=== PATIENT | female | born 1945 | race African-American/Black ===

== ENCOUNTER 2016-10-15 04:47 | Emergency (ER) | payer MEDICARE, BC, OTHER ==
[2016-10-15] MEDS ORDERED: Ondansetron HCl/PF 4 MG/2 ML Vial ONE (05:24)
[2016-10-15 05:36] LABS: #Basophils 0.1 thou/uL (0.0-0.2); #Eosinphils 0.2 thou/uL (0.0-0.7); #Lymphocytes 1.1 thou/uL (1.20-3.40); #Monocytes 0.5 thou/uL (0.11-0.59); #Neutrophils 4.4 thou/uL (1.40-6.50); %Basophils 1.6 % (0.0-1.0); %Eosinophils 2.5 % (0.0-10.0); %Lymphocytes 17.8 % (21.0-51.0); Hemoglobin 10.9 g/dL (12.0-16.0); Mean Corpuscular HGB CONC 34.1 g/dL (32.0-36.0); Mean Corpuscular Hemoglobin 30.7 pg (27.0-31.0); Mean Platelet Volume 6.2 fL (7.4-10.4); Platelet Count 262 thou/uL (130-400); RBC Distribution Width 12.5 % (11.5-14.5); Red Blood Cell (RBC) Count 3.55 mill/uL (4.20-5.40); White Blood Cell (WBC) Count 6.2 thou/uL (4.8-10.8)
[2016-10-15 05:46] LABS: ALT (SGPT) 16 U/L (8-55); AST (SGOT) 34 U/L (5-34); Albumin 3.5 g/dL (3.4-4.8); Alkaline Phosphatase 70 U/L (40-150); Anion Gap 16 mmol/L (10-20); BUN (Urea Nitrogen) 18 mg/dL (9.8-20.1); Bilirubin, Total 0.3 mg/dL (0.2-1.2); CK (CPK) 170 U/L (29-168); CKMB 1.5 ng/mL (0-6.6); Calc. Creatinine Clearance 0 mL/min (70-130); Calcium 9.1 mg/dL (7.8-10.44); Carbon Dioxide 26 mmol/L (23-31); Chloride 108 mmol/L (98-107); Estimated GFR-MDRD 30; Globulin 3.4 g/dL (2.4-3.5); Glucose 81 mg/dL (83-110); Lipase 163 U/L (8-78); Potassium 3.7 mmol/L (3.5-5.1); Protein, Total 6.9 g/dL (5.8-8.1); Sodium 146 mmol/L (136-145); Troponin I 0.038 ng/mL (< 0.028)
[2016-10-15 06:34] LABS: Bilirubin Negative (Negative); Blood, Urine Negative (Negative); Clarity Clear (Clear); Glucose, Urine (Dipstick) Negative (Negative); Leukocyte Negative (Negative); Nitrite Negative (Negative); Protein, Urine (Dipstick) 100 mg/dL (Neg-Trace); Urobilinogen 0.2 mg/dL (0.2-1.0); pH, Urine 6.5 (5.0-9.0)
[2016-10-15 06:39] LABS: Bacteria/HPF None Seen HPF (None Seen); RBC/HPF None Seen HPF (0-3); Squamous Epithelial 0-3 HPF (0-3); WBC/HPF 0-3 HPF (0-3)
--- NOTE | 2016-10-15 08:06 | RAD ---
AP VIEW OF CHEST: Date: 10/15/16 INDICATION: Nausea and vomiting. COMPARISON: Prior exam dated 05/06/16. FINDINGS: The lungs are clear. The patient is slightly rotated to the right accentuating the ascending aorta. Pulmonary vasculature are normal. No pleural effusion or pneumothorax evident. IMPRESSION: No acute cardiopulmonary abnormality. POS: [facility]
== END 2016-10-15 07:15 | disposition home or self-care (01) ==
LOC: NAV ERS 04:47
DX: R10.30 Lower abdominal pain, unspecified (principal); I25.2 Old myocardial infarction; E11.9 Type 2 diabetes mellitus without complications; E78.5 Hyperlipidemia, unspecified; E78.00 Pure hypercholesterolemia, unspecified; I48.91 Unspecified atrial fibrillation; F03.90 Unspecified dementia, unspecified severity, without behavioral disturbance, psychotic disturbance, mood disturbance, and anxiety; I12.9 Hypertensive chronic kidney disease with stage 1 through stage 4 chronic kidney disease, or unspecified chronic kidney disease; N18.9 Chronic kidney disease, unspecified; D64.9 Anemia, unspecified; Z79.899 Other long term (current) drug therapy
CPT/HCPCS: 71010; 80053; 81003; 81015; 82553; 83690; 84484; 85025; 93005; 96374; J2405

== ENCOUNTER 2016-12-05 18:05 | Emergency (ER) | payer MEDICARE, BC, OTHER ==
--- NOTE | 2016-12-06 07:36 | RAD ---
THREE VIEWS OF THE RIGHT HAND: DATE: 12/05/16. HISTORY: Right hand pain. FINDINGS: There is scattered osteoarthritis involving the interphalangeal joints and greater involving the 1st carpometacarpal joint. No fracture or dislocation is seen involving the right hand. IMPRESSION: Scattered osteoarthritis about the hand, but no acute osseous abnormality is seen. POS: [facility]
== END 2016-12-05 19:20 | disposition home or self-care (01) ==
LOC: NAV ERS 18:06
DX: S60.221A Contusion of right hand, initial encounter (principal); I10 Essential (primary) hypertension; W22.03XA Walked into furniture, initial encounter

== ENCOUNTER 2016-12-07 13:40 | Outpatient (CLI) | payer MEDICARE, BC, OTHER ==
--- NOTE | 2016-12-07 16:02 | RAD ---
RIGHT HAND THREE VIEWS: History: 71-year-old female with right hand pain and swelling. Comparison: 12-05-16 FINDINGS: No evidence for acute fracture or dislocation. Osteoarthrosis changes are noted of the wrist and parra d. Stable appearance from 12-05-16. IMPRESSION: No acute fracture or dislocation. Degenerative and osteoarthrosis changes. POS: [facility]
== END 2016-12-07 13:41 | disposition home or self-care (01) ==
LOC: NAV RAD 13:40
PROVIDERS: ATTEND Internal Medicine
DX: S60.031A Contusion of right middle finger without damage to nail, initial encounter (principal)

== ENCOUNTER 2016-12-21 07:57 | Observation (INO) | payer MEDICARE, BC, OTHER ==
[2016-12-21] MEDS ORDERED: Morphine Sulfate 2 MG/ML SYRINGE ONE (08:41)
[2016-12-21] MEDS ORDERED: Nitroglycerin 0.4 MG TAB (25 Tab Bottle) ONE (08:42)
[2016-12-21] MEDS ORDERED: Promethazine HCl 25 MG/ML VIAL ONE (08:42)
[2016-12-21] MEDS ORDERED: Sodium Chloride 0.9% 100 ML ONE (08:42)
[2016-12-21 08:53] LABS: ALT (SGPT) 14 U/L (8-55); AST (SGOT) 27 U/L (5-34); Albumin 3.8 g/dL (3.4-4.8); Alkaline Phosphatase 68 U/L (40-150); Anion Gap 18 mmol/L (10-20); BUN (Urea Nitrogen) 20 mg/dL (9.8-20.1); Bilirubin, Total 0.3 mg/dL (0.2-1.2); Calc. Creatinine Clearance 0 mL/min (70-130); Calcium 9.5 mg/dL (7.8-10.44); Carbon Dioxide 23 mmol/L (23-31); Chloride 106 mmol/L (98-107); Estimated GFR-MDRD 24; Globulin 2.8 g/dL (2.4-3.5); Glucose 168 mg/dL (83-110); Lipase 47 U/L (8-78); Potassium 3.4 mmol/L (3.5-5.1); Protein, Total 6.6 g/dL (6.0-8.3); Sodium 144 mmol/L (136-145)
[2016-12-21 08:54] LABS: CKMB 1.6 ng/mL (0-6.6); Troponin I 0.045 ng/mL (< 0.028)
[2016-12-21] MEDS ORDERED: Sodium Chloride 0.9% 1,000 ML ONE (09:03)
[2016-12-21 09:09] LABS: Bilirubin Negative (Negative); Blood, Urine Negative (Negative); Clarity Clear (Clear); Glucose, Urine (Dipstick) Negative (Negative); Leukocyte Negative (Negative); Nitrite Negative (Negative); Protein, Urine (Dipstick) Trace mg/dL (Neg-Trace); Specific Gravity, Urine 1.015 (1.005-1.030); Urobilinogen 0.2 mg/dL (0.2-1.0)
[2016-12-21 09:13] LABS: Prothrombin Time 13.1 SEC (12.0-14.7)
[2016-12-21 09:17] LABS: Eosinophils 1 % (0-10); Hemoglobin 11.2 g/dL (12.0-16.0); Lymphocytes 59 % (21-51); MDiff Complete? YES; Mean Corpuscular HGB CONC 33.3 g/dL (32.0-36.0); Mean Corpuscular Hemoglobin 30.1 pg (27.0-31.0); Mean Corpuscular Volume 90.2 fl (81.0-99.0); Mean Platelet Volume 6.2 fL (7.4-10.4); Monocytes 7 % (0-10); Neutrophil 33 % (42-75); PLT Morphology Comment Appears Adequate; Platelet Count 265 thou/uL (130-400); RBC Distribution Width 11.9 % (11.5-14.5); Red Blood Cell (RBC) Count 3.72 mill/uL (4.20-5.40); White Blood Cell (WBC) Count 6.3 thou/uL (4.8-10.8)
[2016-12-21] MEDS ORDERED: Sodium Chloride 0.9% 250 ML 250 ML ONE (09:32)
--- NOTE | 2016-12-21 09:41 | CT ---
CT BRAIN WITHOUT CONTRAST: History: Diaphoretic. Shaking, headache. Comparison: 09-04-15 FINDINGS: No acute territory infarct or hemorrhage. No midline shift of mass effect. Extensive subcortical catalina roangiopathic changes of bifrontal lobes. No mass effect. Calvarium is intact. Paranasal sinuses are clear. Retention cyst of left maxillary sinus. IMPRESSION: 1. No acute intracranial abnormality. No significant change. 2. Extensive subcortical microangiopathic changes. POS: [facility]
[2016-12-21 09:52] LABS: D-Dimer Test 0.29 *mcg/mL (0.27-0.43)
--- NOTE | 2016-12-21 10:27 | RAD ---
CHEST ONE VIEW HISTORY: Diaphoretic. Shaking. COMPARISON: Chest, one view, 10/15/2016. FINDINGS: The lungs are slightly hypoinflated. No pneumothorax or effusion. The cardiac silhouette is unrema rkable, given technique. Mild degenerative changes of both shoulder joints and acromioclavicular fabby ints. There is some irregularity of the right anterior 8th rib. IMPRESSION: 1. No acute intrathoracic abnormality. 2. Some cortical irregularity of the right anterolateral 8th rib, may be sequela of fracture. Salvatore mmend correlation with focal tenderness. POS: [facility]
[2016-12-21] MEDS ORDERED: Sulfameth/Trimethoprim DS 800-160mg TAB PO SCH (11:00)
[2016-12-21 11:34] VITALS: BMI 21.6
[2016-12-21] MEDS: Sodium Chloride 0.9% 1,000 ML IV SCH ×4 (12:10→20:56)
[2016-12-21 14:50] LABS: Lactic Acid 1.1 mmol/L (0.5-2.2)
[2016-12-21 15:00] LABS: Troponin I 0.051 ng/mL (< 0.028)
[2016-12-21 18:49] LABS: Lactic Acid 1.4 mmol/L (0.5-2.2)
[2016-12-21 18:51] LABS: Anion Gap 13 mmol/L (10-20); BUN (Urea Nitrogen) 16 mg/dL (9.8-20.1); Calc. Creatinine Clearance 28 mL/min (70-130); Calcium 8.5 mg/dL (7.8-10.44); Carbon Dioxide 24 mmol/L (23-31); Chloride 110 mmol/L (98-107); Estimated GFR-MDRD 33; Glucose 101 mg/dL (83-110); Potassium 3.8 mmol/L (3.5-5.1); Sodium 143 mmol/L (136-145)
[2016-12-21] MEDS ORDERED: Donepezil HCl 10 MG TAB PO SCH (21:00)
[2016-12-22] MEDS ORDERED: Haloperidol 1 MG TAB PO SCH (00:15)
[2016-12-22] MEDS: Sodium Chloride 0.9% 1,000 ML IV SCH ×2 (04:20→12:43)
[2016-12-22 05:29] LABS: Anion Gap 12 mmol/L (10-20); BUN (Urea Nitrogen) 16 mg/dL (9.8-20.1); Calc. Creatinine Clearance 26 mL/min (70-130); Calcium 8.4 mg/dL (7.8-10.44); Carbon Dioxide 26 mmol/L (23-31); Chloride 112 mmol/L (98-107); Estimated GFR-MDRD 31; Glucose 90 mg/dL (83-110); Sodium 146 mmol/L (136-145)
[2016-12-22] MEDS ORDERED: Aspirin 81 mg Enteric Coated Tablet PO SCH (09:00)
[2016-12-22] MEDS ORDERED: BUPROPION HCL 100 MG PO SCH (09:00)
[2016-12-22] MEDS ORDERED: Folic Acid 1 MG TAB PO SCH (09:00)
[2016-12-22 14:24] LABS: Anion Gap 14 mmol/L (10-20); BUN (Urea Nitrogen) 16 mg/dL (9.8-20.1); Calc. Creatinine Clearance 28 mL/min (70-130); Calcium 8.4 mg/dL (7.8-10.44); Carbon Dioxide 22 mmol/L (23-31); Chloride 112 mmol/L (98-107); Estimated GFR-MDRD 34; Glucose 132 mg/dL (83-110); Potassium 4.4 mmol/L (3.5-5.1); Sodium 144 mmol/L (136-145)
[2016-12-22 17:10] VITALS: BP 161/77; TEMP 97.2
== END 2016-12-22 17:33 | disposition home or self-care (01) ==
LOC: NAV ERS 07:57 → NAV ACUTE 11:19
PROVIDERS: ADMIT Internal Medicine; ATTEND Internal Medicine
DX: I12.9 Hypertensive chronic kidney disease with stage 1 through stage 4 chronic kidney disease, or unspecified chronic kidney disease (principal); N18.3 Chronic kidney disease, stage 3 (moderate); E86.0 Dehydration; R07.9 Chest pain, unspecified; F03.90 Unspecified dementia, unspecified severity, without behavioral disturbance, psychotic disturbance, mood disturbance, and anxiety; Z79.899 Other long term (current) drug therapy
CPT/HCPCS: 36415; 36416; 70450; 71010; 80048; 80053; 81003; 82553; 83605; 83690; 83880; 84484; 85025; 85379; 85610; 85730; 87040; 87086; 93005; 94760; 96361; 96365; 96367; 96375; A4353; G0378; J2270; J2550; J3370; J7050

== ENCOUNTER 2017-01-11 04:03 | Emergency (ER) | payer MEDICARE, BC, OTHER ==
[2017-01-11] MEDS ORDERED: Ibuprofen 200 MG TAB ONE (04:48)
--- NOTE | 2017-01-11 08:13 | RAD ---
CHEST TWO VIEWS: Comparison: 08-13-14 History: Fall, left sided chest pain. FINDINGS: Normal cardiac silhouette. The pulmonary vessels and hilum are normal. Costophrenic angles are clear . No mass. No consolidation. No pneumothorax or osseous abnormality. IMPRESSION: No acute cardiopulmonary process. POS: [facility]
--- NOTE | 2017-01-11 08:17 | RAD ---
LEFT RIBS TWO VIEWS: History: Injury. Comparison: None. FINDINGS: Two views left ribs. No fracture. No cortical irregularity or periosteal reaction. IMPRESSION: No fracture. POS: [facility]
== END 2017-01-11 05:30 | disposition home or self-care (01) ==
LOC: NAV ERS 04:03
DX: R07.89 Other chest pain (principal); I10 Essential (primary) hypertension; G30.9 Alzheimer's disease, unspecified; F02.80 Dementia in other diseases classified elsewhere, unspecified severity, without behavioral disturbance, psychotic disturbance, mood disturbance, and anxiety; Z79.82 Long term (current) use of aspirin; Z79.899 Other long term (current) drug therapy; W06.XXXA Fall from bed, initial encounter
CPT/HCPCS: 71020

== ENCOUNTER 2017-02-16 11:50 | Emergency (ER) | payer MEDICARE, BC, OTHER ==
[2017-02-16 12:32] LABS: #Basophils 0.1 thou/uL (0.0-0.2); #Lymphocytes 1.4 thou/uL (1.20-3.40); #Monocytes 0.3 thou/uL (0.11-0.59); #Neutrophils 1.5 thou/uL (1.40-6.50); %Basophils 1.6 % (0.0-1.0); %Eosinophils 0.8 % (0.0-10.0); %Lymphocytes 43.4 % (21.0-51.0); %Monocytes 9.1 % (0.0-10.0); %Neutrophils 45.1 % (42.0-75.0); Hemoglobin 10.9 g/dL (12.0-16.0); Mean Corpuscular HGB CONC 32.4 g/dL (32.0-36.0); Mean Corpuscular Hemoglobin 29.8 pg (27.0-31.0); Mean Corpuscular Volume 92.1 fl (81.0-99.0); Mean Platelet Volume 6.6 fL (7.4-10.4); Platelet Count 247 thou/uL (130-400); RBC Distribution Width 11.9 % (11.5-14.5); Red Blood Cell (RBC) Count 3.64 mill/uL (4.20-5.40); White Blood Cell (WBC) Count 3.3 thou/uL (4.8-10.8)
[2017-02-16 12:44] LABS: CKMB 1.5 ng/mL (0-6.6)
[2017-02-16 12:46] LABS: ALT (SGPT) 11 U/L (8-55); AST (SGOT) 17 U/L (5-34); Albumin 3.8 g/dL (3.4-4.8); Alkaline Phosphatase 64 U/L (40-150); Anion Gap 12 mmol/L (10-20); BUN (Urea Nitrogen) 15 mg/dL (9.8-20.1); Bilirubin, Total 0.2 mg/dL (0.2-1.2); Calc. Creatinine Clearance 0 mL/min (70-130); Calcium 9.4 mg/dL (7.8-10.44); Carbon Dioxide 28 mmol/L (23-31); Chloride 107 mmol/L (98-107); Estimated GFR-MDRD 32; Globulin 2.6 g/dL (2.4-3.5); Glucose 128 mg/dL (83-110); Potassium 3.3 mmol/L (3.5-5.1); Protein, Total 6.4 g/dL (6.0-8.3); Sodium 144 mmol/L (136-145)
--- NOTE | 2017-02-16 12:49 | CT ---
CT BRAIN NONCONTRAST: HISTORY: A 72-year-old female with acute syncope, dysarthria and difficulty understanding commands. This stroke alert protocol report was called, by telephone, to Dr. Jesus Patterson, of [facility], at 12:21 p.m. on 02/16/2017. FINDINGS: There is no midline shift or any other mass effect. There is no evidence of acute intracranial hemo rrhage, large cortical infarct, obstructive hydrocephalus, or extraaxial fluid collection. The calv arium is intact. There is diffuse parenchymal volume loss. There are low attenuation areas in the white matter. These are nonspecific, but in a patient of this age, they are probably chronic ischem ic white matter changes due to microvascular atherosclerosis. IMPRESSION: 1) No acute intracranial findings. 2) Involutional changes and chronic ischemic white matter changes. CODE CR jn [] POS: [facility]
[2017-02-16] MEDS ORDERED: Sodium Chloride 0.9% 1,000 ML ONE (12:52)
== END 2017-02-16 14:27 | disposition short-term general hospital (02) ==
LOC: NAV ERS 11:50
DX: R55 Syncope and collapse (principal); I12.0 Hypertensive chronic kidney disease with stage 5 chronic kidney disease or end stage renal disease; N18.9 Chronic kidney disease, unspecified; E87.6 Hypokalemia; G30.9 Alzheimer's disease, unspecified; F02.80 Dementia in other diseases classified elsewhere, unspecified severity, without behavioral disturbance, psychotic disturbance, mood disturbance, and anxiety; Z79.82 Long term (current) use of aspirin; Z79.899 Other long term (current) drug therapy
CPT/HCPCS: 36416; 70450; 80053; 82553; 84484; 85025; 93005; 96360; J7050

== ENCOUNTER 2017-05-09 18:44 | Emergency (ER) | payer MEDICARE, BC, OTHER ==
--- NOTE | 2017-05-09 20:10 | RAD ---
CHEST TWO VIEWS HISTORY: Cough. COMPARISON: Chest two-view 01/11/2017. FINDINGS: Lungs are hypoinflated. No pneumothorax or effusion. No focal airspace consolidation. There is narrowing of subacromial space bilaterally. IMPRESSION: No acute intrathoracic abnormality. POS: [facility]
[2017-05-09 20:17] LABS: ALT (SGPT) 10 U/L (8-55); AST (SGOT) 21 U/L (5-34); Albumin 4.1 g/dL (3.4-4.8); Alkaline Phosphatase 69 U/L (40-150); Anion Gap 16 mmol/L (10-20); BUN (Urea Nitrogen) 24 mg/dL (9.8-20.1); Bilirubin, Total 0.3 mg/dL (0.2-1.2); Calc. Creatinine Clearance 0 mL/min (70-130); Calcium 9.6 mg/dL (7.8-10.44); Carbon Dioxide 25 mmol/L (23-31); Chloride 104 mmol/L (98-107); Estimated GFR-MDRD 23; Globulin 2.9 g/dL (2.4-3.5); Glucose 105 mg/dL (83-110); Sodium 141 mmol/L (136-145)
[2017-05-09 20:18] LABS: CKMB 1.6 ng/mL (0-6.6); Troponin I 0.046 ng/mL (< 0.028)
[2017-05-09 20:33] LABS: #Basophils 0.1 thou/uL (0.0-0.2); #Lymphocytes 1.1 thou/uL (1.20-3.40); #Monocytes 0.4 thou/uL (0.11-0.59); #Neutrophils 4.7 thou/uL (1.40-6.50); %Eosinophils 0.7 % (0.0-10.0); %Lymphocytes 17.4 % (21.0-51.0); %Monocytes 6.8 % (0.0-10.0); Hemoglobin 12.1 g/dL (12.0-16.0); Mean Corpuscular HGB CONC 32.4 g/dL (32.0-36.0); Mean Corpuscular Hemoglobin 31.1 pg (27.0-31.0); Mean Corpuscular Volume 96.1 fl (81.0-99.0); Mean Platelet Volume 6.8 fL (7.4-10.4); Platelet Count 230 thou/uL (130-400); RBC Distribution Width 11.3 % (11.5-14.5); Red Blood Cell (RBC) Count 3.88 mill/uL (4.20-5.40); White Blood Cell (WBC) Count 6.4 thou/uL (4.8-10.8)
[2017-05-09] MEDS ORDERED: Sodium Chloride 0.9% 1,000 ML ONE (20:48)
[2017-05-09 20:59] LABS: Bilirubin Negative (Negative); Blood, Urine Negative (Negative); Glucose, Urine (Dipstick) Negative (Negative); Leukocyte Negative (Negative); Nitrite Negative (Negative); Protein, Urine (Dipstick) 100 mg/dL (Neg-Trace); Urobilinogen 0.2 mg/dL (0.2-1.0); pH, Urine 5.5 (5.0-9.0)
[2017-05-09 21:00] LABS: Clarity SL HAZY (Clear)
[2017-05-09 21:02] LABS: Crystals/HPF 3+ AMORPH URATES HPF (Negative); Specific Gravity, Urine 1.032 (1.002-1.036); Squamous Epithelial 0-3 HPF (0-3)
[2017-05-09] MEDS ORDERED: cefTRIAXone\\ROCEPHIN 1 GM VIAL ONE (21:56)
[2017-05-09] MEDS ORDERED: Sodium Chloride 0.9% 100 ML ONE (21:56)
== END 2017-05-09 22:09 | disposition short-term general hospital (02) ==
LOC: NAV ERS 18:44
DX: I12.9 Hypertensive chronic kidney disease with stage 1 through stage 4 chronic kidney disease, or unspecified chronic kidney disease (principal); N17.9 Acute kidney failure, unspecified; N18.9 Chronic kidney disease, unspecified; G30.9 Alzheimer's disease, unspecified; F02.80 Dementia in other diseases classified elsewhere, unspecified severity, without behavioral disturbance, psychotic disturbance, mood disturbance, and anxiety; R74.8 Abnormal levels of other serum enzymes; Z79.82 Long term (current) use of aspirin; Z79.899 Other long term (current) drug therapy
CPT/HCPCS: 51701; 71020; 80053; 81003; 81015; 82553; 83605; 83880; 84443; 84484; 85025; 93005; 94760; 96374; A4353; J0696; J7050

== ENCOUNTER 2017-09-22 20:09 | Emergency (ER) | payer MEDICARE, BC, OTHER ==
[2017-09-22] MEDS ORDERED: Acetaminophen 500 MG TAB ONE (20:43)
[2017-09-22] MEDS ORDERED: Bacitracin Zinc 1 Packet ONE (20:56)
--- NOTE | 2017-09-22 21:28 | RAD ---
RADIOGRAPH RIGHT SHOULDER THREE VIEWS: 09/22/17 HISTORY: 72-year-old female status post acute right traumatic shoulder injury due to fall. FINDINGS: There is no fracture or dislocation. Moderate degenerative changes of the AC joint. Superior subluxat ion of the humeral head relative to the glenoid is evidence for chronic, longstanding rotator cuff te ar. Moderate DJD at glenohumeral joint. IMPRESSION: 1. No evidence of acute fracture. 2. Evidence for chronic complete tear of the rotator cuff. 3. Moderate osteoarthrosis. POS: [facility]
--- NOTE | 2017-09-22 22:04 | RAD ---
RIGHT FOREARM TWO VIEWS: 09/22/17 CLINICAL HISTORY: Injury, pain. FINDINGS: There is no fracture or dislocation identified. Scattered degenerative changes are present. IMPRESSION: No acute osseous abnormality of the right forearm. POS: [facility]
--- NOTE | 2017-09-22 22:05 | RAD ---
RIGHT ELBOW FOUR VIEWS: 09/22/17 CLINICAL HISTORY: Injury with pain. FINDINGS: There is no fracture or dislocation identified. Slight obliquity of the lateral view does limit asses sment. There is degenerative change. IMPRESSION: No acute osseous abnormality of the right elbow identified. POS: [facility]
== END 2017-09-22 21:53 ==
LOC: NAV ERS 20:09 → UNDOADMOB 21:43 → NAV ACUTE 21:43 → NAV ERS 21:53
DX: S50.11XA Contusion of right forearm, initial encounter (principal); I10 Essential (primary) hypertension; G30.9 Alzheimer's disease, unspecified; F02.80 Dementia in other diseases classified elsewhere, unspecified severity, without behavioral disturbance, psychotic disturbance, mood disturbance, and anxiety; Z79.82 Long term (current) use of aspirin; Z79.899 Other long term (current) drug therapy; W10.9XXA Fall (on) (from) unspecified stairs and steps, initial encounter

== ENCOUNTER 2017-11-11 08:59 | Outpatient (CLI) | payer MEDICARE, BC ==
[2017-11-11 09:45] LABS: Anion Gap 15 mmol/L (10-20); BUN (Urea Nitrogen) 19 mg/dL (9.8-20.1); Calc. Creatinine Clearance 0 mL/min (70-130); Calcium 9.5 mg/dL (7.8-10.44); Carbon Dioxide 26 mmol/L (23-31); Chloride 108 mmol/L (98-107); Estimated GFR-MDRD 20; Glucose 84 mg/dL (83-110); Potassium 3.7 mmol/L (3.5-5.1); Sodium 145 mmol/L (136-145)
--- NOTE | 2017-11-11 11:22 | CT ---
NONCONTRAST SOFT TISSUE NECK CT: HISTORY: Sialadenitis. COMPARISON: None. TECHNIQUE: A noncontrast soft tissue neck CT is performed in the axial plane. Reformatted images are submitted for interpretation. FINDINGS: There is a mucus retention cyst in the left maxillary sinus. The remaining sinuses and mastoid air c ells are adequately aerated. The visualized brain parenchyma and orbits are grossly unremarkable. The aerodigestive tract is patent. No definite mucosal abnormality. Evaluation of the oral cavity i s limited by a metallic artifact at the level of the mandibular protuberance. Suggestion of normal m idline fatty raphe of the tongue. Epiglottis has a normal caliber. Preepiglottic fat is preserved. There is no prevertebral soft tissue swelling. At the mid right aspect of the floor of the mouth, there is a well circumscribed, hyperdense lesion, compatible with a calcification, measuring 1.1 x 0.5 cm. There is a second calcification along the a nterior aspect of the right floor of the mouth, measuring 0.6 x 0.3 cm. Sialoliths is favored. Ther e appears to be associated minimal edema associated with the right submandibular gland. Evaluation i s limited by lack of IV contrast. Symmetric attenuation of the parotid glands. The thyroid gland is mildly heterogeneous. Symmetric attenuation of the sternocleidomastoid muscles. No evidence of lymphadenopathy by size criteria. The central spinal canal is patent. There are varying degrees of central canal stenosis and foramina l narrowing, on the basis of degenerative change. This evaluation is limited technique. The upper mediastinum and lung apices are unremarkable. IMPRESSION: Two calcifications along the right aspect of the floor of the mouth, along the expected course of the right submandibular duct. There appear to be two separate sialolith. Mild edema of the right subma ndibular gland is suspected, suggesting sialoadenitis. Correlate clinically. POS: [facility]
== END 2017-11-11 09:00 | disposition home or self-care (01) ==
LOC: NAV CT 08:59
PROVIDERS: ATTEND Internal Medicine
DX: K11.20 Sialoadenitis, unspecified (principal); K11.5 Sialolithiasis; Z79.899 Other long term (current) drug therapy
CPT/HCPCS: 36415; 70490; 80048

== ENCOUNTER 2018-03-03 15:09 | Emergency (ER) | payer MEDICARE, BC ==
[2018-03-03] MEDS ORDERED: Mineral Oil ENEMA ONE (15:51)
== END 2018-03-03 16:30 | disposition home or self-care (01) ==
LOC: NAV ERS 15:09
DX: K56.41 Fecal impaction (principal); G30.9 Alzheimer's disease, unspecified; F02.80 Dementia in other diseases classified elsewhere, unspecified severity, without behavioral disturbance, psychotic disturbance, mood disturbance, and anxiety; M10.9 Gout, unspecified; Z79.899 Other long term (current) drug therapy; Z79.82 Long term (current) use of aspirin
CPT/HCPCS: 99283

== ENCOUNTER 2018-04-23 13:12 | Emergency (ER) | payer MEDICARE, BC ==
[2018-04-23 14:16] LABS: Bilirubin Negative (Negative); Blood, Urine Negative (Negative); Glucose, Urine (Dipstick) Negative (Negative); Leukocyte Trace (Negative); Nitrite Negative (Negative); Protein, Urine (Dipstick) 30 mg/dL (Neg-Trace); Urobilinogen 0.2 mg/dL (0.2-1.0)
[2018-04-23 14:24] LABS: Clarity SL HAZY (Clear)
[2018-04-23 14:28] LABS: WBC/HPF 0-3 HPF (0-3)
[2018-04-23 14:30] LABS: Bacteria/HPF 4+ HPF (None Seen)
[2018-04-23] MEDS ORDERED: cefTRIAXone\\ROCEPHIN 1 GM VIAL ONE (14:54)
[2018-04-23 15:09] LABS: #Lymphocytes 1.1 thou/uL (1.20-3.40); #Monocytes 0.2 thou/uL (0.11-0.59); #Neutrophils 1.2 thou/uL (1.40-6.50); %Basophils 1.7 % (0.0-1.0); %Eosinophils 1.3 % (0.0-10.0); %Lymphocytes 44.4 % (21.0-51.0); %Monocytes 6.8 % (0.0-10.0); %Neutrophils 45.9 % (42.0-75.0); Hemoglobin 9.3 g/dL (12.0-16.0); Mean Corpuscular Hemoglobin 31.8 pg (27.0-31.0); Mean Corpuscular Volume 96.5 fL (78.0-98.0); Mean Platelet Volume 6.4 fL (7.4-10.4); Platelet Count 188 thou/uL (130-400); Red Blood Cell (RBC) Count 2.92 mill/uL (4.20-5.40); White Blood Cell (WBC) Count 2.5 thou/uL (4.8-10.8)
[2018-04-23 15:25] LABS: ALT (SGPT) Less than 6 U/L (8-55); AST (SGOT) 12 U/L (5-34); Albumin 3.2 g/dL (3.4-4.8); Alkaline Phosphatase 43 U/L (40-150); Anion Gap 11 mmol/L (10-20); BUN (Urea Nitrogen) 15 mg/dL (9.8-20.1); Bilirubin, Total 0.3 mg/dL (0.2-1.2); CK (CPK) 42 U/L (29-168); Calc. Creatinine Clearance 0 mL/min (70-130); Calcium 9.4 mg/dL (7.8-10.44); Carbon Dioxide 25 mmol/L (23-31); Chloride 111 mmol/L (98-107); Estimated GFR-MDRD 34; Globulin 2.5 g/dL (2.4-3.5); Glucose 87 mg/dL (83-110); Potassium 3.9 mmol/L (3.5-5.1); Protein, Total 5.7 g/dL (6.0-8.3); Sodium 143 mmol/L (136-145)
[2018-04-23 15:28] LABS: CKMB 0.4 ng/mL (0-6.6); Troponin I 0.061 ng/mL (< 0.028)
--- NOTE | 2018-04-23 15:30 | CT ---
CT BRAIN WITHOUT CONTRAST: Date: 04/23/18 HISTORY: Fall. COMPARISON: CT brain dated 02/08/18. FINDINGS: No acute infarct or hemorrhage. No midline shift or mass effect. Old lacunar infarcts on the left. Ca lvarium is intact. IMPRESSION: No acute intracranial abnormality. Chronic findings. POS: [facility]
--- NOTE | 2018-04-23 15:48 | RAD ---
LEFT HAND 3 VIEWS: Date: 04/23/18 HISTORY: Injury. COMPARISON: None. FINDINGS: There is widening of the scapholunate interval, which may be chronic in nature. Advanced degenerative disease of the thumb carpometacarpal joint. Moderate interphalangeal joint space narrowing through all fingers. IMPRESSION: No acute fracture. Chronic findings. POS: [facility]
--- NOTE | 2018-04-23 15:48 | CT ---
CT CERVICAL SPINE WITHOUT CONTRAST: Date: 04/23/18 HISTORY: Fall. COMPARISON: None. FINDINGS: The occipital condyles are intact. The odontoid process is intact. There is no acute fracture or toni lignment of the cervical spine. The lung apices are clear. IMPRESSION: No acute fracture or malalignment of the cervical spine. POS: [facility]
== END 2018-04-23 15:57 | disposition home or self-care (01) ==
LOC: NAV ERS 13:12
DX: S09.90XA Unspecified injury of head, initial encounter (principal); S60.222A Contusion of left hand, initial encounter; N39.0 Urinary tract infection, site not specified; I10 Essential (primary) hypertension; E78.00 Pure hypercholesterolemia, unspecified; G30.9 Alzheimer's disease, unspecified; F02.80 Dementia in other diseases classified elsewhere, unspecified severity, without behavioral disturbance, psychotic disturbance, mood disturbance, and anxiety; M10.9 Gout, unspecified; Z79.899 Other long term (current) drug therapy; Z79.82 Long term (current) use of aspirin; W19.XXXA Unspecified fall, initial encounter
CPT/HCPCS: 51701; 70450; 72125; 80053; 81003; 81015; 82553; 84484; 85025; 87086; 93005; 96374; 96375; A4353; J0696; J2270

== ENCOUNTER 2018-07-31 13:14 | Emergency (ER) | payer MEDICARE, BC ==
[2018-07-31 14:02] LABS: #Eosinphils 0.1 thou/uL (0.0-0.7); #Lymphocytes 1.2 thou/uL (1.20-3.40); #Monocytes 0.3 thou/uL (0.11-0.59); #Neutrophils 2.1 thou/uL (1.40-6.50); %Eosinophils 2.2 % (0.0-10.0); %Monocytes 7.4 % (0.0-10.0); %Neutrophils 56.3 % (42.0-75.0); Hemoglobin 9.2 g/dL (12.0-16.0); Mean Corpuscular HGB CONC 31.5 g/dL (32.0-36.0); Mean Corpuscular Hemoglobin 31.2 pg (27.0-31.0); Mean Corpuscular Volume 98.9 fL (78.0-98.0); Mean Platelet Volume 6.9 fL (7.4-10.4); Platelet Count 198 thou/uL (130-400); RBC Distribution Width 12.2 % (11.5-14.5); Red Blood Cell (RBC) Count 2.94 mill/uL (4.20-5.40); White Blood Cell (WBC) Count 3.7 thou/uL (4.8-10.8)
[2018-07-31 14:29] LABS: ALT (SGPT) 9 U/L (8-55); AST (SGOT) 19 U/L (5-34); Albumin 3.9 g/dL (3.4-4.8); Alkaline Phosphatase 64 U/L (40-150); Anion Gap 14 mmol/L (10-20); BUN (Urea Nitrogen) 20 mg/dL (9.8-20.1); Bilirubin, Total 0.3 mg/dL (0.2-1.2); CK (CPK) 142 U/L (29-168); Calc. Creatinine Clearance 0 mL/min (70-130); Calcium 9.8 mg/dL (7.8-10.44); Carbon Dioxide 24 mmol/L (23-31); Chloride 110 mmol/L (98-107); Estimated GFR-MDRD 25; Glucose 90 mg/dL (83-110); Lipase 14 U/L (8-78); Potassium 4.3 mmol/L (3.5-5.1); Protein, Total 6.9 g/dL (6.0-8.3); Sodium 144 mmol/L (136-145)
[2018-07-31 14:50] LABS: CKMB 0.9 ng/mL (0-6.6)
--- NOTE | 2018-07-31 14:53 | RAD ---
ONE VIEW CHEST: HISTORY: Pain. FINDINGS: Normal cardiac silhouette. The pulmonary vessel and hilum are normal. Costophrenic angles are clear . No masses or consolidation. No pneumothorax or osseous abnormalities. IMPRESSION: No acute cardiopulmonary process. POS: [facility]
[2018-07-31] MEDS ORDERED: Pantoprazole 40 MG VIAL ONE (15:42)
== END 2018-07-31 15:55 | disposition home or self-care (01) ==
LOC: NAV ERS 13:14
DX: R10.30 Lower abdominal pain, unspecified (principal); I10 Essential (primary) hypertension; E78.00 Pure hypercholesterolemia, unspecified; G30.9 Alzheimer's disease, unspecified; F02.80 Dementia in other diseases classified elsewhere, unspecified severity, without behavioral disturbance, psychotic disturbance, mood disturbance, and anxiety; Z79.82 Long term (current) use of aspirin; Z79.899 Other long term (current) drug therapy
CPT/HCPCS: 71045; 80053; 82550; 82553; 83690; 83880; 84484; 85025; 93005; 96374; C9113

== ENCOUNTER 2018-09-26 00:39 | Emergency (ER) | payer MEDICARE, BC ==
[2018-09-26] MEDS ORDERED: Dexamethasone 4 mg/ml Vial ONE (01:19)
== END 2018-09-26 01:42 | disposition home or self-care (01) ==
LOC: NAV ERS 00:39
DX: T78.40XA Allergy, unspecified, initial encounter (principal); I10 Essential (primary) hypertension; E78.00 Pure hypercholesterolemia, unspecified; M10.9 Gout, unspecified; G30.9 Alzheimer's disease, unspecified; F02.80 Dementia in other diseases classified elsewhere, unspecified severity, without behavioral disturbance, psychotic disturbance, mood disturbance, and anxiety; Z79.82 Long term (current) use of aspirin; Z79.899 Other long term (current) drug therapy
CPT/HCPCS: 96372; J1100

== ENCOUNTER 2018-11-05 19:29 | Emergency (ER) | payer MEDICARE, BC ==
--- NOTE | 2018-11-05 20:43 | RAD ---
4 views right knee. HISTORY: Fall with right knee pain. AP, lateral and both oblique views right knee obtained. No evidence of right knee fractures, subluxations or bony lesions seen. IMPRESSION: Normal 4 views right knee.
--- NOTE | 2018-11-05 21:18 | RAD ---
2 views right hip. HISTORY: Fall AP and frog leg views right hip obtained. There is a possible area of irregularity involving the medial aspect of the right acetabulum seen on the AP view. I do recommend correlation with right hip CT help determine whether this is an acute fracture or due to positioning. No other definite fracture seen. IMPRESSION: Possible right hip fracture correlate with CT.
[2018-11-05] MEDS ORDERED: Midazolam HCl 5 mg/ml Vial ONE (21:52)
--- NOTE | 2018-11-05 21:54 | RAD ---
2 views right ankle. HISTORY: Fall with ankle pain. AP and lateral views right ankle obtained. No evidence of acute fractures or bony lesion seen. IMPRESSION: No evidence of acute right ankle fractures.
--- NOTE | 2018-11-05 22:43 | CT ---
CT right hip. history: Trauma with possible abnormality seen on plain film radiograph. CT right hip demonstrates no evidence of acute right hip fractures. The acetabulum, femoral head and neck are unremarkable. IMPRESSION: No evidence of acute right hip fractures.
== END 2018-11-05 23:06 | disposition home or self-care (01) ==
LOC: NAV ERS 19:29
DX: S80.11XA Contusion of right lower leg, initial encounter (principal); E78.00 Pure hypercholesterolemia, unspecified; I10 Essential (primary) hypertension; G30.9 Alzheimer's disease, unspecified; F02.80 Dementia in other diseases classified elsewhere, unspecified severity, without behavioral disturbance, psychotic disturbance, mood disturbance, and anxiety; Z79.899 Other long term (current) drug therapy; Z79.82 Long term (current) use of aspirin; W19.XXXA Unspecified fall, initial encounter
CPT/HCPCS: J2250

== ENCOUNTER 2018-12-30 21:40 | Emergency (ER) | payer MEDICARE, BC | END 2018-12-30 22:22 | disposition home or self-care (01) | LOC: NAV ERS 21:40 | DX: K59.09 Other constipation (principal); I10 Essential (primary) hypertension; E78.00 Pure hypercholesterolemia, unspecified; M10.9 Gout, unspecified; G30.0 Alzheimer's disease with early onset; F02.80 Dementia in other diseases classified elsewhere, unspecified severity, without behavioral disturbance, psychotic disturbance, mood disturbance, and anxiety; Z79.82 Long term (current) use of aspirin; Z79.899 Other long term (current) drug therapy | CPT/HCPCS: 99283 ==

== ENCOUNTER 2019-04-22 16:31 | Emergency (ER) | payer MEDICARE, BC ==
[2019-04-22] MEDS ORDERED: Acetaminophen 325 MG TAB ONE (17:00)
[2019-04-22] MEDS ORDERED: Acetaminophen 650 MG Suppository ONE (17:02)
--- NOTE | 2019-04-22 17:38 | RAD ---
Exam: XR Foot Lt 3 View STANDARD HISTORY: Left foot pain. COMPARISON: None FINDINGS: Osteopenia is present. There is osteoarthritis involving the first metatarsal-phalangeal joint. The t oes are held in flexion which limits evaluation. Minimal degenerative changes are seen involving the midfoot. A posterior calcaneal enthesophyte is id entified. No acute fracture, dislocation, or other acute osseous abnormality is identified. IMPRESSION: No acute osseous abnormality is identified. Osteopenia and osteoarthritis.
--- NOTE | 2019-04-22 17:40 | RAD ---
Exam: XR Tib Fib Lt Leg 2 View HISTORY: Distal left lower extremity pain. COMPARISON: None FINDINGS: The most distal aspect of the left tibia-fibula are excluded from view on each view. There is otherwise no acute fracture, dislocation, or other acute osseous abnormality identified. Vascular calcifications are seen involving the lower tibial peroneal vessels. IMPRESSION: Exclusion of the most distal tibia and fibula, but there is otherwise no acute osseous abnormality se en involving the left tibia fibula.
== END 2019-04-22 18:30 | disposition home or self-care (01) ==
LOC: NAV ERS 16:31
DX: S80.12XA Contusion of left lower leg, initial encounter (principal); S90.32XA Contusion of left foot, initial encounter; I10 Essential (primary) hypertension; E78.00 Pure hypercholesterolemia, unspecified; G30.9 Alzheimer's disease, unspecified; F02.80 Dementia in other diseases classified elsewhere, unspecified severity, without behavioral disturbance, psychotic disturbance, mood disturbance, and anxiety; Z79.82 Long term (current) use of aspirin; Z79.2 Long term (current) use of antibiotics; Z79.899 Other long term (current) drug therapy; W22.8XXA Striking against or struck by other objects, initial encounter

== ENCOUNTER 2019-07-01 16:41 | Emergency (ER) | payer MEDICARE, BC ==
--- NOTE | 2019-07-01 17:21 | RAD ---
RADIOGRAPH CHEST 1 VIEW: DATE: 07/01/2019 HISTORY: 74-year-old female with fever FINDINGS: There are no airspace densities, pulmonary edema, pneumothorax, or cardiomegaly. The lateral costophr enic angles are sharp. IMPRESSION: No acute cardiopulmonary findings.
== END 2019-07-01 17:40 | disposition home or self-care (01) ==
LOC: NAV ERS 16:41
DX: R50.9 Fever, unspecified (principal); I10 Essential (primary) hypertension; E78.00 Pure hypercholesterolemia, unspecified; G30.9 Alzheimer's disease, unspecified; M10.9 Gout, unspecified; Z79.82 Long term (current) use of aspirin; Z79.899 Other long term (current) drug therapy
CPT/HCPCS: 71045; 87804; 99284

== ENCOUNTER 2019-10-10 19:19 | Emergency (ER) | payer MEDICARE, BC, OTHER ==
--- NOTE | 2019-10-10 20:35 | RAD ---
PORTABLE CHEST: 10/10/19 HISTORY: Enlarged lymph node right neck region. COMPARISON: 07/01/19. The lungs remain clear. No infiltrate identified. Heart and mediastinum unremarkable. IMPRESSION: No acute process identified. POS: [facility]
--- NOTE | 2019-10-10 20:37 | RAD ---
TOES OF RIGHT FOOT: 10/10/19 Two views. HISTORY: Swelling of toes of the right foot. The great toe is evaluated. The other toes are not adequately evaluated. The great toe is evaluated i n two projections. There are degenerative changes at the first MTP joint and at the IP joint. No frac ture identified. No acute osseous abnormality seen. IMPRESSION: Degenerative changes of the right great toe. No acute process identified. POS: [facility]
[2019-10-10 21:06] LABS: Bilirubin Negative (Negative); Blood, Urine Negative (Negative); Glucose, Urine (Dipstick) Negative (Negative); Leukocyte Negative (Negative); Nitrite Negative (Negative); Protein, Urine (Dipstick) 100 mg/dL (Neg-Trace); Urobilinogen 0.2 mg/dL (Less than 2)
[2019-10-10 21:14] LABS: #Lymphocytes 0.9 thou/uL (1.20-3.40); #Monocytes 0.5 thou/uL (0.11-0.59); %Basophils 0.4 % (0.0-1.0); %Eosinophils 0.1 % (0.0-10.0); %Lymphocytes 8.7 % (21.0-51.0); %Monocytes 5.2 % (0.0-10.0); %Neutrophils 85.7 % (42.0-75.0); Hemoglobin 11.4 g/dL (12.0-16.0); Mean Corpuscular HGB CONC 32.8 g/dL (32.0-36.0); Mean Corpuscular Hemoglobin 32.6 pg (27.0-31.0); Mean Corpuscular Volume 99.5 fL (78.0-98.0); Mean Platelet Volume 6.9 fL (7.4-10.4); Platelet Count 209 thou/uL (130-400); RBC Distribution Width 12.4 % (11.5-14.5); Red Blood Cell (RBC) Count 3.49 mill/uL (4.20-5.40); White Blood Cell (WBC) Count 10.5 thou/uL (4.8-10.8)
[2019-10-10 21:17] LABS: Bacteria/HPF 1+ HPF (None Seen); Clarity Hazy (Clear); Squamous Epithelial 0-3 HPF (0-3); WBC/HPF 0-3 HPF (0-3)
[2019-10-10 21:26] LABS: ALT (SGPT) 7 U/L (8-55); AST (SGOT) 11 U/L (5-34); Albumin 3.5 g/dL (3.4-4.8); Alkaline Phosphatase 61 U/L (40-110); Anion Gap 16 mmol/L (10-20); BUN (Urea Nitrogen) 22 mg/dL (9.8-20.1); Bilirubin, Total 0.4 mg/dL (0.2-1.2); Calc. Creatinine Clearance 0 mL/min (70-130); Calcium 9.5 mg/dL (7.8-10.44); Carbon Dioxide 21 mmol/L (23-31); Chloride 116 mmol/L (98-107); Estimated GFR-MDRD 28; Globulin 3.6 g/dL (2.4-3.5); Glucose 113 mg/dL (83-110); Potassium 4.3 mmol/L (3.5-5.1); Protein, Total 7.1 g/dL (6.0-8.3); Sodium 149 mmol/L (136-145)
[2019-10-10] MEDS ORDERED: cefTRIAXone\\ROCEPHIN 1 GM VIAL ONE (21:38)
[2019-10-11 17:58] LABS: SARS-CoV-2 MS2 Positive; SARS-CoV-2 N Gene Negative; SARS-CoV-2 S Gene Negative; SARS-CoV-2 orf1ab Negative
== END 2019-10-10 21:55 | disposition home or self-care (01) ==
LOC: NAV ERS 19:19
DX: K11.20 Sialoadenitis, unspecified (principal); R56.9 Unspecified convulsions; I10 Essential (primary) hypertension; M10.9 Gout, unspecified; K59.09 Other constipation; E78.00 Pure hypercholesterolemia, unspecified; Z79.82 Long term (current) use of aspirin; Z79.899 Other long term (current) drug therapy
CPT/HCPCS: 51701; 71045; 73660; 80053; 83605; 85025; 87086; 99284; U0002; 81003; 81015; 87635; A4353; J0696

== ENCOUNTER 2021-04-20 12:44 | Emergency (ER) | payer MEDICARE, BC ==
[2021-04-20 13:18] LABS: #Basophils 0.1 thou/uL (0.0-0.2); #Eosinphils 0.2 thou/uL (0.0-0.7); #Monocytes 0.2 thou/uL (0.11-0.59); #Neutrophils 1.5 thou/uL (1.40-6.50); %Basophils 1.6 % (0.0-1.0); %Eosinophils 3.5 % (0.0-10.0); %Lymphocytes 61.2 % (21.0-51.0); %Neutrophils 29.6 % (42.0-75.0); Hemoglobin 9.2 g/dL (12.0-16.0); Mean Corpuscular HGB CONC 32.2 g/dL (32.0-36.0); Mean Corpuscular Hemoglobin 31.7 pg (27.0-31.0); Mean Corpuscular Volume 98.4 fL (78.0-98.0); Mean Platelet Volume 6.6 fL (7.4-10.4); Platelet Count 225 thou/uL (130-400); RBC Distribution Width 13.9 % (11.5-14.5); White Blood Cell (WBC) Count 4.9 thou/uL (4.8-10.8)
[2021-04-20 13:30] LABS: ALT (SGPT) 24 U/L (8-55); AST (SGOT) 27 U/L (5-34); Albumin 2.5 g/dL (3.4-4.8); Alkaline Phosphatase 67 U/L (40-110); Anion Gap 10 mmol/L (10-20); BUN (Urea Nitrogen) 28 mg/dL (9.8-20.1); Bilirubin, Total 0.3 mg/dL (0.2-1.2); Calc. Creatinine Clearance 0 mL/min (70-130); Calcium 9.2 mg/dL (7.8-10.44); Carbon Dioxide 26 mmol/L (23-31); Chloride 116 mmol/L (98-107); Globulin 3.3 g/dL (2.4-3.5); Glucose 105 mg/dL (83-110); Potassium 3.8 mmol/L (3.5-5.1); Protein, Total 5.8 g/dL (5.8-8.1); Sodium 148 mmol/L (136-145)
== END 2021-04-20 16:30 | disposition home or self-care (01) ==
LOC: NAV ERS 12:44
DX: G40.909 Epilepsy, unspecified, not intractable, without status epilepticus (principal); I10 Essential (primary) hypertension; E78.00 Pure hypercholesterolemia, unspecified; M10.9 Gout, unspecified; Z79.899 Other long term (current) drug therapy
CPT/HCPCS: 36416; 70450; 80053; 85025; 93005

== ENCOUNTER 2021-07-22 16:48 | Emergency (ER) | payer MEDICARE, BC ==
[2021-07-22 17:20] LABS: Hemoglobin 8.4 g/dL (12.0-16.0); Mean Corpuscular HGB CONC 31.8 g/dL (32.0-36.0); Mean Corpuscular Hemoglobin 33.1 pg (27.0-31.0); Mean Platelet Volume 5.5 fL (7.4-10.4); Platelet Count 313 thou/uL (130-400); RBC Distribution Width 12.9 % (11.5-14.5); Red Blood Cell (RBC) Count 2.55 mill/uL (4.20-5.40); White Blood Cell (WBC) Count 5.6 thou/uL (4.8-10.8)
[2021-07-22 17:29] LABS: ALT (SGPT) 15 U/L (8-55); AST (SGOT) 21 U/L (5-34); Albumin 2.4 g/dL (3.4-4.8); Alkaline Phosphatase 61 U/L (40-110); Anion Gap 13 mmol/L (10-20); BUN (Urea Nitrogen) 30 mg/dL (9.8-20.1); Bilirubin, Total 0.2 mg/dL (0.2-1.2); CK (CPK) 35 U/L (29-168); Calc. Creatinine Clearance 0 mL/min (70-130); Calcium 8.5 mg/dL (7.8-10.44); Carbon Dioxide 21 mmol/L (23-31); Chloride 115 mmol/L (98-107); Globulin 2.9 g/dL (2.4-3.5); Glucose 150 mg/dL (83-110); Lipase 10 U/L (8-78); Potassium 3.8 mmol/L (3.5-5.1); Protein, Total 5.3 g/dL (5.8-8.1); Sodium 145 mmol/L (136-145)
[2021-07-22 17:32] LABS: MDiff Complete? YES; Manual Diff?? YES; Neutrophil 60 % (42-75)
[2021-07-22 17:33] LABS: Eosinophils 1 % (0-10); Lymphocytes 57 % (21-51); Monocytes 2 % (0-10); Platelet Morphology Comment Appears Adequate; RBC Morphology Normal
[2021-07-22 17:38] LABS: Bilirubin Negative (Negative); Blood, Urine Moderate (Negative); Clarity Clear (Clear); Glucose, Urine (Dipstick) Negative (Negative); Ketone, Urine Negative (Negative); Leukocyte Negative (Negative); Nitrite Negative (Negative); Protein, Urine (Dipstick) Negative (Neg-Trace); Specific Gravity, Urine 1.015 (1.005-1.030); Urobilinogen 0.2 mg/dL (Less than 2)
[2021-07-22 17:41] LABS: RBC/HPF 0-3 HPF (0-3); Squamous Epithelial 0-3 HPF (0-3); WBC/HPF 0-3 HPF (0-3); Yeast-Budding 1+ HPF (None Seen)
[2021-07-22] MEDS ORDERED: Aspirin 300 MG Suppository ONE (17:58)
[2021-07-22] MEDS ORDERED: Sodium Chloride 0.9% 500 ML ONE (18:50)
[2021-07-22 18:56] LABS: INR-International Normal Ratio 1.2; PTT 32.6 sec (22.9-36.1)
[2021-07-22 19:47] LABS: SARS-CoV-2 NAA Rapid Test Not Detected (NotDetected)
== END 2021-07-22 19:35 | disposition short-term general hospital (02) ==
LOC: NAV ERS 16:48
DX: I69.114 Frontal lobe and executive function deficit following nontraumatic intracerebral hemorrhage (principal); R56.9 Unspecified convulsions; J18.9 Pneumonia, unspecified organism; D64.9 Anemia, unspecified; K63.89 Other specified diseases of intestine; I11.0 Hypertensive heart disease with heart failure; I50.9 Heart failure, unspecified; E78.00 Pure hypercholesterolemia, unspecified; M10.9 Gout, unspecified; Z20.822 Contact with and (suspected) exposure to COVID-19; Z79.82 Long term (current) use of aspirin; Z79.899 Other long term (current) drug therapy
CPT/HCPCS: 51701; 70450; 71045; 74176; 82550; 82553; 83605; 83690; 84484; 85610; 85730; 87040; 87086; 93005; 96365; 99285; U0002; 80053; 81003; 81015; 84443; 85025; J1956; J7030